=== PATIENT | female | born 1945 | race Caucasian/White ===

== ENCOUNTER 2020-08-12 10:25 | Outpatient (CLI) | payer MEDICARE, BC | END 2020-08-12 23:59 | disposition home or self-care (01) | LOC: 64 CT 10:25 | PROVIDERS: ATTEND Family Medicine | DX: N20.0 Calculus of kidney (principal); N13.30 Unspecified hydronephrosis; N13.4 Hydroureter; M47.819 Spondylosis without myelopathy or radiculopathy, site unspecified; K42.9 Umbilical hernia without obstruction or gangrene; J98.11 Atelectasis; K76.89 Other specified diseases of liver | CPT/HCPCS: 74176 ==